=== PATIENT | female | born 1960 | race American Indian/Alaskan Native ===

== ENCOUNTER 2020-12-02 18:29 | Emergency (ER) | payer OTHER ==
--- NOTE | 2020-12-02 18:43 | Event Note ---
ED Screening Note ED Screening Note: Patient is a 60-year-old female presents emergency room complaints of generalized abdominal pain that began 3 days ago She has associated nausea and feels like she wants to vomit She has not had any vomiting or diarrhea States that she had a normal bowel movement 2 days ago She denies any dysuria, dark urine, odor to the urine, hematochezia, melena, hematemesis No past medical history No abdominal surgical history Allergy to Bactrim This initial assessment/diagnostic orders/clinical plan/treatment(s) is/are subject to change based on patients health status, clinical progression and re- assessment by fellow clinical providers in the ED. Further treatment and workup at subsequent clinical providers discretion. Patient/guardian urged not to elope from the ED as their condition may be serious if not clinically assessed and managed. Initial orders include: labs, UA
[2020-12-02 19:12] LABS: Basophils # (Auto) 0.1 K/mm3 (0.0-0.1); Basophils % (Auto) 1.1 % (0.0-1.8); Eosinophils # (Auto) 0.1 K/mm3 (0.0-0.4); Eosinophils % (Auto) 1.2 % (0.0-4.3); Hematocrit 43.3 % (30.3-42.9); Lymphocytes # (Auto) 1.9 K/mm3 (1.2-5.4); Lymphocytes % (Auto) 15.7 % (13.4-35.0); Mean Corpuscular HGB Conc 32 % (30-34); Mean Corpuscular Volume 94 fl (79-97); Monocytes # (Auto) 0.8 K/mm3 (0.0-0.8); Monocytes % (Auto) 6.9 % (0.0-7.3); Platelet Count 267 K/mm3 (140-440); Red Blood Count 4.61 M/mm3 (3.65-5.03); Red Cell Distribution Width 14.5 % (13.2-15.2)
[2020-12-02 19:23] LABS: Bacteria,Urine 1+ /HPF (Negative); Bilirubin,Urine NEG (Negative); Blood,Urine SM (Negative); Color,Urine Yellow (Yellow); Mucus,Urine FEW /HPF; Protein,Urine <15 mg/dL mg/dL (Negative); Urobilinogen,Urine < 2.0 mg/dL (<2.0)
[2020-12-02 19:36] LABS: Alanine Aminotransferase 12 units/L (7-56); Albumin 4.3 g/dL (3.9-5); Blood Urea Nitrogen 7 mg/dL (7-17); Calcium 9.6 mg/dL (8.4-10.2); Hemolysis Index 30
[2020-12-02 19:37] LABS: BUN/Creatinine Ratio 10
[2020-12-02] MEDS ORDERED: ONDANSETRON 4 MG/2 ML INJ IV ONE (22:06)
[2020-12-02] MEDS ORDERED: DICYCLOMINE 20 MG TAB PO ONE (22:06)
--- NOTE | 2020-12-02 22:09 | Emergency Department Report ---
ED Abdominal Pain HPI - General Chief Complaint: Abdominal Pain Stated Complaint: STOMACH PAIN Time Seen by Provider: 12/02/20 18:39 Source: patient Mode of arrival: Ambulatory Limitations: No Limitations - History of Present Illness Initial Comments: 60-year-old female, no past medical history, presents to ED with 4-day history of diffuse abdominal pain. Patient reports associated nausea, denies any vomiting, diarrhea, fever, urinary symptoms. Patient states pain has been intermittent. No relief with Pepto-Bismol. No aggravating or alleviating factors. Denies any previous surgeries. MD Complaint: abdominal pain -: days(s) (4) Location: diffuse Radiation: none Migration to: no migration Severity: moderate Quality: cramping Consistency: intermittent Improves With: nothing Worsens With: nothing Associated Symptoms: nausea. denies: vomiting, diarrhea, fever - Related Data Previous Rx's Medication Instructions Recorded Last Taken Type Dicyclomine [Bentyl] 20 mg PO QID PRN #20 tablet 12/02/20 Unknown Rx Ondansetron [Zofran Odt] 4 mg PO Q8HR PRN #20 tab.rapdis 12/02/20 Unknown Rx Allergies Allergy/AdvReac Type Severity Reaction Status Date / Time sulfamethoxazole Allergy Hives Verified 12/02/20 18:31 [From Bactrim] trimethoprim [From Bactrim] Allergy Hives Verified 12/02/20 18:31 ED Review of Systems ROS: Stated complaint: STOMACH PAIN Other details as noted in HPI Comment: All other systems reviewed and negative Constitutional: denies: chills, fever Gastrointestinal: abdominal pain, nausea. denies: vomiting, diarrhea Genitourinary: denies: dysuria, frequency ED Past Medical Hx - Past Medical History Previous Medical History?: No - Surgical History Additional Surgical History: SHOULDER REPLACEMENT - Medications Home Medications: Home Medications Medication Instructions Recorded Confirmed Last Taken Type Dicyclomine [Bentyl] 20 mg PO QID PRN #20 tablet 12/02/20 Unknown Rx Ondansetron [Zofran Odt] 4 mg PO Q8HR PRN #20 tab.rapdis 12/02/20 Unknown Rx ED Physical Exam - General Limitations: No Limitations General appearance: alert, in no apparent distress - Head Head exam: Present: atraumatic, normocephalic - Eye Eye exam: Present: normal appearance, EOMI - ENT ENT exam: Present: mucous membranes moist - Neck Neck exam: Present: normal inspection - Respiratory Respiratory exam: Present: normal lung sounds bilaterally. Absent: respiratory distress - Cardiovascular Cardiovascular Exam: Present: regular rate, normal rhythm - GI/Abdominal GI/Abdominal exam: Present: soft, tenderness (Mild, diffuse). Absent: distended - Extremities Exam Extremities exam: Present: normal inspection - Neurological Exam Neurological exam: Present: alert, oriented X3 - Psychiatric Psychiatric exam: Present: normal affect, normal mood - Skin Skin exam: Present: warm, dry, intact, normal color ED Course Vital Signs 12/02/20 12/02/20 12/02/20 18:33 22:32 22:45 Temperature 98.2 F Pulse Rate 77 Respiratory 18 Rate Blood Pressure 149/92 148/74 O2 Sat by Pulse 99 99 100 Oximetry 12/02/20 12/02/20 23:00 23:15 Temperature Pulse Rate Respiratory Rate Blood Pressure 149/70 149/70 O2 Sat by Pulse 99 99 Oximetry ED Medical Decision Making - Lab Data Result diagrams: 12/02/20 18:53 12/02/20 18:53 - Radiology Data Radiology results: report reviewed, image reviewed - Medical Decision Making 60-year-old female presents to ED with diffuse abdominal pain and nausea x4 days. Vitals are normal. Slightly elevated WBCs of 12.3. CT abdomen pelvis shows possible enteritis. Patient given Zofran, Bentyl, IV fluids here in the ED. She is comfortable with discharge home. Prescriptions given. Outpatient follow-up advised, return precautions given. - Differential Diagnosis UTI, diverticulitis, obstruction Critical care attestation.: If time is entered above; I have spent that time in minutes in the direct care of this critically ill patient, excluding procedure time. ED Disposition Clinical Impression: Enteritis Disposition: DC-01 TO HOME OR SELFCARE Is pt being admited?: No Condition: Stable Instructions: Viral Gastroenteritis, Adult, [id number], Abdominal Pain (ED) Prescriptions: Dicyclomine [Bentyl] 20 mg PO QID PRN #20 tablet PRN Reason: abdominal pain Ondansetron [Zofran Odt] 4 mg PO Q8HR PRN #20 tab.rapdis PRN Reason: Vomiting Referrals: [facility] MD CORINNA [Primary Care Provider] - 3-5 Days YOSHI MIJARES MD [Staff Physician] - 3-5 Days Time of Disposition: 23:08
--- NOTE | 2020-12-02 22:46 | Cat Scan Report ---
CT abdomen pelvis w con INDICATION / CLINICAL INFORMATION: abd pain. TECHNIQUE: Axial CT imaging of abdomen and pelvis was obtained with IV contrast. Coronal and sagittal reformatte d imaging obtained and reviewed. All CT scans at this location are performed using CT dose reduction for ALARA by means of automated exposure control. COMPARISON: None available. FINDINGS: CT abdomen with contrast shows numerous hepatic cysts scattered throughout the liver. The liver is ot herwise unremarkable. Spleen, pancreas, kidneys, and adrenal glands all appear unremarkable. Gallblad casi is present and without visible abnormality. No biliary dilatation. CT pelvis with contrast demonstrates normal appearance of the appendix. No pelvic mass, free fluid, o r focal inflammatory changes noted. There are a few fluid-filled loops of small bowel throughout the abdomen and pelvis. Overall this is nonspecific but could represent mild enteritis if clinical sympto ms support that diagnosis. The remainder of the GI tract is normal. No evidence for bowel obstruction . Visualized lung bases are clear. No significant acute osseous abnormality noted. IMPRESSION: 1. Questionable mild enteritis. Please correlate with clinical presentation/symptoms. 2. No other significant finding. Signer Name: Arlin Perez MD Signed: 12/02/2020 10:41 PM Workstation Name: [id number]
[2020-12-02 23:19] VITALS: BP 149/70
== END 2020-12-02 23:19 | disposition home or self-care (01) ==
LOC: ED 18:29
DX: K52.9 Noninfective gastroenteritis and colitis, unspecified (principal); Z79.899 Other long term (current) drug therapy; Z88.2 Allergy status to sulfonamides; Z88.8 Allergy status to other drugs, medicaments and biological substances; Z98.890 Other specified postprocedural states
CPT/HCPCS: 36415; 74177; 80053; 81001; 83690; 85025; 96374; 99284; J2405